=== PATIENT | male | born 1945 | race Caucasian/White ===

== ENCOUNTER 2016-03-26 10:23 | Emergency (ER) | payer OTHER ==
[~2016-03-26] VITALS: Ht 172.7 cm; Wt 96.3 kg
[2016-03-26 10:24] VITALS: TEMP 36.8; Ht 172.7 cm; Wt 96.3 kg
[2016-03-26] MEDS ORDERED: SIMV20TA2 PO (10:41)
[2016-03-26] MEDS ORDERED: LISI10TA PO (10:41)
[2016-03-26] MEDS ORDERED: ASPI81TA28 PO (10:41)
[2016-03-26] MEDS ORDERED: SODIUM CHLORIDE 0.9% 1000ML 1,000 ML IV STA (10:52)
[2016-03-26] MEDS ORDERED: MECLIZINE HCL 25 MG TAB PO STA (11:10)
[2016-03-26 11:25] LABS: BASO % 0.3 %; BASO ABS # 0.02 K/uL (0-0.2); COMPLETE YES; EOS % 1.2 %; HEMATOCRIT 39.4 % (42-52); IG% 0.2 %; LYMPH ABS # 0.98 K/uL (1.2-3.4); MEAN CORPUSCULAR HGB CONC 34.5 g/dl (32-36); MEAN PLATELET VOLUME 10.5 fL (7.4-10.4); MONO % 7.4 %; NEUT % 73.9 %; PLATELET COUNT 236 K/uL (130-400); RED BLOOD COUNT 4.69 M/uL (4.7-6.1); WHITE BLOOD COUNT 5.78 K/uL (4.8-10.8)
[2016-03-26 11:35] LABS: PARTIAL THROMBOPLASTIN RATIO 0.9; PROTHROMBIN TIME (PATIENT) 10.3 SECONDS (9.0-12.0)
--- NOTE | 2016-03-26 11:41 | DIAGNOSTIC IMAGING REPORT ---
HEAD CT NONCONTRAST CT DOSE: 537.48 mGy.cm HISTORY: EVALUATE ALTERED MENTAL STATUS/WEAKNESS TECHNIQUE: Multiaxial CT images of the head were performed without the use of intravenous contrast. Automated exposure control was utilized for this study. Comparison: None. Findings: The paranasal sinuses and mastoid air cells are clear. The calvarium and skull base are intact. There is no mass, hematoma, midline shift, acute infarct. White matter hypodensity is nonspecific but suggestive of microvascular ischemic change. The ventricles and sulci demonstrate mild age-related involutional changes. 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 Impression: No acute intracranial abnormality. Electronically signed by: Cody Burch M.D. 03/26/2016 11:39 AM Dictated Date/Time: 03/26/2016 11:35 AM
[2016-03-26 11:46] LABS: ALT/SGPT 26 U/L (12-78); BLOOD UREA NITROGEN 19 mg/dl (7-18); BUN/CREATININE RATIO 14.3 (10-20); CALCIUM 9.2 mg/dl (8.5-10.1); CARBON DIOXIDE 24 mmol/L (21-32); CHLORIDE 105 mmol/L (98-107); GLUCOSE 190 mg/dl (70-99); MAGNESIUM 2.3 mg/dl (1.8-2.4); POTASSIUM 4.2 mmol/L (3.5-5.1); SODIUM 140 mmol/L (136-145)
--- NOTE | 2016-03-26 11:50 | DIAGNOSTIC IMAGING REPORT ---
CHEST ONE VIEW PORTABLE HISTORY: Weakness. Dizziness. EVALUATE ALTERED MENTAL STATUS/WEAKNESS COMPARISON: None. FINDINGS: The lungs are clear. The heart is borderline enlarged. No pleural effusions. No pneumothorax. IMPRESSION: No acute process. Electronically signed by: Cody Burch M.D. 03/26/2016 11:48 AM Dictated Date/Time: 03/26/2016 11:47 AM
[2016-03-26 11:55] LABS: ALKALINE PHOSPHATASE 72 U/L (45-117); AST/SGOT 16 U/L (15-37); CKMB/CK RATIO 2.2 (0-3.0)
--- NOTE | 2016-03-26 13:20 | DIAGNOSTIC IMAGING REPORT ---
CAROTID ARTERY ULTRASOUND CLINICAL HISTORY: Dizziness. COMPARISON STUDY: None. TECHNIQUE: Real-time, grayscale, and color Doppler sonography of the carotid and vertebral arteries was performed. Images were viewed in the transverse and longitudinal planes. FINDINGS: There is mild atherosclerotic plaque. Velocity measurements are listed below. COMMON CAROTID PEAK SYSTOLIC VELOCITY (CM/S): RIGHT 101 LEFT 97 ICA PEAK SYSTOLIC VELOCITY (CM/S): RIGHT 53 LEFT 67 The systolic ratios between the internal to common carotid arteries were normal. Antegrade flow is seen in the vertebral arteries. The external carotid arteries are patent. Blood pressure in the right arm measured 142/81. Blood pressure in the left arm measured 92/60. IMPRESSION: 1. No evidence of a hemodynamically significant stenosis within the bilateral common carotid and internal carotid arteries. 2. Significant asymmetry in upper extremity blood pressures, as described above, left less than right. Mildly elevated velocity within the proximal left subclavian artery. The findings raise the possibility of a proximal left subclavian artery stenosis. Normal vertebral artery waveforms. Electronically signed by: Tam Boggs M.D. 03/26/2016 1:18 PM Dictated Date/Time: 03/26/2016 1:12 PM
[2016-03-26] MEDS ORDERED: MECL1TAB42 PO (13:51)
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
[2016-03-26 14:02] VITALS: BP 129/97; PULSE 68; O2SAT 98
== END 2016-03-26 14:04 | disposition home or self-care (01) ==
LOC: C.EDB 10:24 → C.EDA 14:04
DX: R42 Dizziness and giddiness (principal); E78.00 Pure hypercholesterolemia, unspecified; I10 Essential (primary) hypertension; Z82.49 Family history of ischemic heart disease and other diseases of the circulatory system; Z79.82 Long term (current) use of aspirin; Z79.899 Other long term (current) drug therapy